=== PATIENT | female | born 1980 | race Caucasian/White ===

== ENCOUNTER → 2017-11-01 | Outpatient (CLI) | payer MEDICARE, SELFPAY ==
[~2017-11-01] MED LIST: 8 Hour C500 MG PO; ACEASPCAF; ACET325; ALBU90I INH; AMOCLA500 PO; AMOX500 PO; BUPR150T2; CALCAVITD PO; CARI350; CEPH500 PO; CITA20; DIAZ5 PO; DOXY100 PO; DULO30 PO; FERR325 PO; GABA300; GABA300 PO; HYDACE5 PO; HYDHCL25 PO; HYDPAM25 PO; IBUP200; IBUP600 PO; IBUP800 PO; KETO10 PO; METR500 PO; MULT50L; MULVITMINE PO; MUPI2TO TOP; Monodox100 MG PO; Motrin800 MG PO; NAPR500 PO; NORT10; OXYACE5T PO; PENVK500 PO; PHENY100ER PO; PROM25 PO; Prilosec20 MG PO; RANI150 PO; RXAMOX500 PO; RXHYDACE PO; RXPENVK250 PO; RXSULTRIDS PO; SERT50; SULTRIDS PO; TOPI100; TRAM50; TRAM50 PO; VARE1 PO; Vitamin D400 UNI1; Zofran4 MG PO; [UNRECOGNIZED DRUG - OTHER]; [UNRECOGNIZED DRUG - OTHER] PO
== END ==
LOC: LAB SHORT 17:09 → PLD 17:09
DX: D22.5 Melanocytic nevi of trunk (principal)
CPT/HCPCS: 88305

== ENCOUNTER 2017-12-12 12:04 | Day surgery (SDC) | payer MEDICARE, SELFPAY ==
[~2017-12-12] VITALS: Ht 149.9 cm; Wt 63.7 kg
== END 2017-12-12 13:39 | disposition home or self-care (01) ==
LOC: ORSCSDS 12:04
PROVIDERS: Internal Medicine Gastroenterology
PROC: 0DB98ZX Excision of Duodenum, Via Natural or Artificial Opening Endoscopic, Diagnostic (ICD-10-PCS; principal; 2017-12-12 13:15)
PROC: 0DB68ZX Excision of Stomach, Via Natural or Artificial Opening Endoscopic, Diagnostic (ICD-10-PCS; principal; 2017-12-12 13:15)
DX: R13.10 Dysphagia, unspecified (principal); K29.00 Acute gastritis without bleeding; Z87.11 Personal history of peptic ulcer disease; F41.8 Other specified anxiety disorders; G40.909 Epilepsy, unspecified, not intractable, without status epilepticus; F17.210 Nicotine dependence, cigarettes, uncomplicated; Z79.899 Other long term (current) drug therapy
CPT/HCPCS: 88305; 88342; J7120

== ENCOUNTER → 2019-04-26 | Outpatient (CLI) | payer MEDICARE | END | disposition home or self-care (01) | LOC: LAB SHORT 13:25 → LAB 13:25 | DX: R35.0 Frequency of micturition (principal) | CPT/HCPCS: 87086 ==

== ENCOUNTER → 2020-03-24 | Outpatient (CLI) | payer MEDICARE ==
[2020-03-24 10:11] LABS: BASOPHILS ABSOLUTE AUTO 0.05 K/mm3 (0.00-0.23); BASOPHILS PERCENT AUTO 0 % (0-2); EOSINOPHILS ABSOLUTE AUTO 0.06 K/mm3 (0.00-0.68); EOSINOPHILS PERCENT AUTO 1 % (0-6); Hematocrit 37.2 % (33.0-51.0); Hemoglobin 12.4 g/dL (11.5-16.0); IMMATURE GRAN ABSOLUTE AUTO 0.04 K/mm3 (0.00-0.10); IMMATURE GRAN PERCENT AUTO 0 % (0-1); LYMPHOCYTES ABSOLUTE AUTO 0.69 K/mm3 (0.84-5.20); LYMPHOCYTES PERCENT AUTO 5 % (21-46); MONOCYTES ABSOLUTE AUTO 0.75 K/mm3 (0.16-1.47); MONOCYTES PERCENT AUTO 6 % (4-13); Mean Corpuscular HGB 26.2 pg (26.0-34.0); Mean Corpuscular HGB Conc 33.3 g/dL (31.5-36.5); Mean Corpuscular Volume 79 fL (80-100); Mean Platelet Volume 9.4 fL (9.1-12.4); NEUTROPHILS ABSOLUTE AUTO 11.08 K/mm3 (1.96-9.15); NEUTROPHILS PERCENT AUTO 88 % (41-73); Platelet Count 289 K/mm3 (150-400); RDW Standard Deviation 46.2 fL (35.1-46.3); Red Blood Cell Count 4.74 M/mm3 (3.80-5.20); White Blood Cell Count 12.67 K/mm3 (4.00-11.30)
[2020-03-24 10:23] LABS: Albumin, Blood 3.9 g/dL (3.4-5.0); Albumin/Globulin Ratio 1.1 (0.8-1.8); Bilirubin, Total 0.5 mg/dL (0.1-1.0); Bun/Creatinine Ratio 23.1 (12.0-20.0); Calcium, Blood 8.9 mg/dL (8.5-10.1); Creatinine, Blood 1.04 mg/dL (0.40-1.00); Globulin, Blood 3.6 g/dL (2.2-4.0); Potassium, Blood 4.8 mmol/L (3.5-5.5); Total Protein, Blood 7.5 g/dL (6.4-8.2)
== END | disposition home or self-care (01) ==
LOC: LAB EV 10:07 → LAB SHORT 10:07
PROVIDERS: Physician Assistant
DX: R10.9 Unspecified abdominal pain (principal)
CPT/HCPCS: 80053; 83690; 85025

== ENCOUNTER 2021-02-18 12:17 | Day surgery (SDC) | payer MEDICARE ==
[~2021-02-18] VITALS: Ht 149.9 cm; Wt 57.3 kg
[~2021-02-18 12:17] MED LIST changes: +BUSP10 PO; +CYMBALTA60 M1 PO; +ESCI10 PO; +GABA100 PO; +MULTIPLE VITAM1 EACH PO; +NORT25 PO; +Nortriptyline H75 MG PO; +PANT40 PO; +RIZATRIPTAN10 M3 PO; +Triamcinolone A15 G4; +Vistaril25 MG PO; +[UNRECOGNIZED DRUG - OTHER] PO
[2021-02-18] MEDS ORDERED: OMEGA-3100 MG PO (12:55)
[2021-02-18] MEDS ORDERED: ESCI10 (12:55)
[2021-02-18] MEDS ORDERED: THERA-D2000 UNIT PO (12:55)
--- NOTE | 2021-02-18 13:01 | NUR ---
02/18/21 1301 Sana Kmible CHARTED BY [facility].FORMERLY [facility]
--- NOTE | 2021-02-18 14:32 | NUR ---
02/18/21 1432 Emily Santiago BUPIVACAINE 0.5% 10ML MIXED WITH EPI 1% PF 10 ML 1:1 FOR INJECTION PRIOR TO BEGINNING OF PROCEDURE BY PHYSICIAN
== END 2021-02-18 15:45 | disposition home or self-care (01) ==
LOC: ORSCSDS 12:17
PROVIDERS: Podiatrist
PROC: 0QSN04Z Reposition Right Metatarsal with Internal Fixation Device, Open Approach (ICD-10-PCS; principal; 2021-02-18 13:30)
DX: M20.11 Hallux valgus (acquired), right foot (principal); M79.671 Pain in right foot; Z87.891 Personal history of nicotine dependence; K21.9 Gastro-esophageal reflux disease without esophagitis; Z79.899 Other long term (current) drug therapy
CPT/HCPCS: C1713; J0690; J2001; J2250; J2704; J3010; J7120

== ENCOUNTER → 2022-08-09 | Outpatient (CLI) | payer MEDICARE ==
[~2022-08-09] MED LIST changes: +ESCI10; +OMEGA-3100 MG PO; +THERA-D2000 UNIT PO
[2022-08-10 15:10] LABS: HPV 16 Negative (Negative); HPV 18 Negative (Negative); HPV OTHER HR TYPES Negative (Negative)
== END | disposition home or self-care (01) ==
LOC: LAB SHORT 08:00 → LAB 08:00
PROVIDERS: Registered Nurse
DX: Z12.4 Encounter for screening for malignant neoplasm of cervix (principal)
CPT/HCPCS: 87624; G0123

== ENCOUNTER → 2023-04-21 | Outpatient (CLI) | payer BC ==
[2023-04-21 17:09] LABS: BASOPHILS ABSOLUTE AUTO 0.05 K/mm3 (0.00-0.23); BASOPHILS PERCENT AUTO 1 % (0-2); EOSINOPHILS ABSOLUTE AUTO 0.12 K/mm3 (0.00-0.68); EOSINOPHILS PERCENT AUTO 3 % (0-6); Hematocrit 35.7 % (33.0-51.0); Hemoglobin 12.1 g/dL (11.5-16.0); IMMATURE GRAN ABSOLUTE AUTO 0.01 K/mm3 (0.00-0.10); IMMATURE GRAN PERCENT AUTO 0 % (0-1); LYMPHOCYTES ABSOLUTE AUTO 1.63 K/mm3 (0.84-5.20); LYMPHOCYTES PERCENT AUTO 40 % (21-46); MONOCYTES ABSOLUTE AUTO 0.34 K/mm3 (0.16-1.47); MONOCYTES PERCENT AUTO 8 % (4-13); Mean Corpuscular HGB 28.3 pg (26.0-34.0); Mean Corpuscular HGB Conc 33.9 g/dL (31.5-36.5); Mean Corpuscular Volume 84 fL (80-100); NEUTROPHILS ABSOLUTE AUTO 1.96 K/mm3 (1.96-9.15); NEUTROPHILS PERCENT AUTO 48 % (41-73); Platelet Count 287 K/mm3 (150-400); RDW Coefficient Variation 14.3 % (11.7-14.2); RDW Standard Deviation 43.8 fL (35.1-46.3); Red Blood Cell Count 4.27 M/mm3 (3.80-5.20); White Blood Cell Count 4.11 K/mm3 (4.00-11.30)
[2023-04-21 21:51] LABS: Albumin, Blood 4.1 g/dL (3.4-5.0); Albumin/Globulin Ratio 1.3 (0.8-1.8); Bilirubin, Total 0.4 mg/dL (0.1-1.0); Bun/Creatinine Ratio 17.5 (12.0-20.0); Calcium, Blood 9.4 mg/dL (8.5-10.1); Creatinine, Blood 1.03 mg/dL (0.40-1.00); Globulin, Blood 3.1 g/dL (2.2-4.0); Potassium, Blood 4.4 mmol/L (3.5-5.5); Thyroid Stimulating Hormone 1.02 uIU/mL (0.360-4.800); Total Protein, Blood 7.2 g/dL (6.4-8.2)
[2023-04-24 00:08] LABS: HEMOGLOBIN A1C 5.8 % (4.8-5.6)
== END | disposition home or self-care (01) ==
LOC: LAB SHORT 15:01 → LAB 15:01
PROVIDERS: Registered Nurse
DX: R53.83 Other fatigue (principal); R73.03 Prediabetes
CPT/HCPCS: 36415; 80053; 83036; 84443; 85025

== ENCOUNTER 2023-04-26 13:29 | Day surgery (SDC) | payer BC ==
[~2023-04-26] VITALS: Ht 149.9 cm; Wt 57.0 kg
[2023-04-26 16:18] VITALS: BP 109/80
== END 2023-04-26 15:50 | disposition home or self-care (01) ==
LOC: ORSCSDS 13:29
PROVIDERS: Internal Medicine Gastroenterology
PROC: 0DB98ZX Excision of Duodenum, Via Natural or Artificial Opening Endoscopic, Diagnostic (ICD-10-PCS; principal; 2023-04-26 14:45)
PROC: 0DB68ZX Excision of Stomach, Via Natural or Artificial Opening Endoscopic, Diagnostic (ICD-10-PCS; principal; 2023-04-26 14:45)
DX: K21.9 Gastro-esophageal reflux disease without esophagitis (principal); K31.A0 Gastric intestinal metaplasia, unspecified; F41.9 Anxiety disorder, unspecified; F32.A Depression, unspecified; G40.909 Epilepsy, unspecified, not intractable, without status epilepticus; Z79.899 Other long term (current) drug therapy; Z87.891 Personal history of nicotine dependence
CPT/HCPCS: 88305; 88342; J2704; J7120

== ENCOUNTER → 2023-12-12 | Outpatient (CLI) | payer BC ==
[2023-12-12 17:01] LABS: Bacterial Vaginosis PCR Negative (NEGATIVE); Candida Group, PCR NOT DETECTED (NOT DETECT); Candida glabrata-krusei, PCR NOT DETECTED (NOT DETECT)
== END | disposition home or self-care (01) ==
LOC: LAB SHORT 14:16
PROVIDERS: Advanced Practice Midwife
DX: N76.0 Acute vaginitis (principal)
CPT/HCPCS: 87481; 87661; 87801

== ENCOUNTER 2024-02-07 19:57 | Emergency (ER) | payer BC ==
[~2024-02-07] VITALS: Ht 157.5 cm; Wt 59.4 kg
[~2024-02-07 19:57] MED LIST changes: +ATOM25 PO; +CLIMARA1 EACH TOP; +Cymbalta20 MG PO; +DOTTI1 EAC6; +DULO60 PO; +ESTRADIOL1 EAC2; +PROG100 PO
[2024-02-07 20:36] LABS: Source, Urine Clean Catch
[2024-02-07 20:38] LABS: Appearance, Urine Clear (Clear); Bilirubin, Urine Neg (Neg); Blood, Urine Neg (Neg); Glucose Qualitative, Urine Neg (Neg); Ketones, Urine Neg (Neg); Leukocyte Esterase, Urine Neg (Neg); Nitrite, Urine Neg (Neg); Protein, Urine Neg (Neg); Urobilinogen, Urine NORM (Normal)
[2024-02-07 20:39] LABS: Color, Urine Pale Yellow (P-Yellow)
[2024-02-07 20:54] LABS: BASOPHILS ABSOLUTE AUTO 0.04 K/mm3 (0.00-0.23); BASOPHILS PERCENT AUTO 1 % (0-2); EOSINOPHILS ABSOLUTE AUTO 0.09 K/mm3 (0.00-0.68); EOSINOPHILS PERCENT AUTO 1 % (0-6); Hematocrit 37.2 % (33.0-51.0); Hemoglobin 11.8 g/dL (11.5-16.0); IMMATURE GRAN ABSOLUTE AUTO 0.02 K/mm3 (0.00-0.10); IMMATURE GRAN PERCENT AUTO 0 % (0-1); LYMPHOCYTES ABSOLUTE AUTO 1.85 K/mm3 (0.84-5.20); LYMPHOCYTES PERCENT AUTO 25 % (21-46); MONOCYTES ABSOLUTE AUTO 0.47 K/mm3 (0.16-1.47); MONOCYTES PERCENT AUTO 6 % (4-13); Mean Corpuscular HGB 25.1 pg (26.0-34.0); Mean Corpuscular HGB Conc 31.7 g/dL (31.5-36.5); Mean Corpuscular Volume 79 fL (80-100); Mean Platelet Volume 9.5 fL (9.1-12.4); NEUTROPHILS ABSOLUTE AUTO 4.94 K/mm3 (1.96-9.15); NEUTROPHILS PERCENT AUTO 67 % (41-73); Platelet Count 349 K/mm3 (150-400); RDW Coefficient Variation 19.5 % (11.7-14.2); RDW Standard Deviation 55.1 fL (35.1-46.3); Red Blood Cell Count 4.71 M/mm3 (3.80-5.20); White Blood Cell Count 7.41 K/mm3 (4.00-11.30)
[2024-02-07 21:29] LABS: Albumin/Globulin Ratio 1.1 (0.8-1.8); Bilirubin, Total 0.2 mg/dL (0.1-1.0); Bun/Creatinine Ratio 18.8 (12.0-20.0); Calcium, Blood 9.6 mg/dL (8.5-10.1); Creatinine, Blood 0.9 mg/dL (0.40-1.00); Globulin, Blood 3.8 g/dL (2.2-4.0); Potassium, Blood 4.2 mmol/L (3.5-5.5); Total Protein, Blood 7.8 g/dL (6.4-8.2)
[2024-02-07] MEDS ORDERED: CREON DR 36,001 EACH PO (23:31)
[2024-02-07] MEDS ORDERED: PROGESTERONE5000 GM MC (23:33)
[2024-02-07] MEDS ORDERED: Cyclobenzaprine HCl 10 MG Tab PO ONE (23:35)
[2024-02-07] MEDS ORDERED: Ondansetron HCl 2 MG / ML 2ML Vial IV ONE (23:50)
[2024-02-08] MEDS ORDERED: DOC250 PO (00:06)
[2024-02-08] MEDS ORDERED: CYCL10 PO (00:06)
[2024-02-08 00:15] VITALS: BP 146/93
[2024-02-08] MEDS ORDERED: Promethazine HCl 25 MG Tab PO ONE (00:15)
== END 2024-02-08 00:35 | disposition home or self-care (01) ==
LOC: ER 19:57
PROVIDERS: Nurse Practitioner
DX: K59.00 Constipation, unspecified (principal); Z88.8 Allergy status to other drugs, medicaments and biological substances; Z88.5 Allergy status to narcotic agent; Z79.899 Other long term (current) drug therapy; G43.909 Migraine, unspecified, not intractable, without status migrainosus
CPT/HCPCS: 74176; 80053; 81003; 81025; 85025; 99284-25; A9270; J2405

== ENCOUNTER 2024-04-07 02:45 | Emergency (ER) | payer BC ==
[~2024-04-07] VITALS: Ht 149.9 cm; Wt 59.0 kg
[~2024-04-07 02:45] MED LIST changes: +CREON DR 36,001 EACH PO; +CYCL10 PO; +DOC250 PO; +PROGESTERONE5000 GM MC
[2024-04-07] MEDS ORDERED: Droperidol 5 mg/2 ml Vial IV ONE (04:35)
[2024-04-07 04:36] LABS: BASOPHILS ABSOLUTE AUTO 0.04 K/mm3 (0.00-0.23); BASOPHILS PERCENT AUTO 0 % (0-2); EOSINOPHILS ABSOLUTE AUTO 0.05 K/mm3 (0.00-0.68); EOSINOPHILS PERCENT AUTO 0 % (0-6); Hematocrit 44.5 % (33.0-51.0); Hemoglobin 15.1 g/dL (11.5-16.0); IMMATURE GRAN ABSOLUTE AUTO 0.07 K/mm3 (0.00-0.10); IMMATURE GRAN PERCENT AUTO 1 % (0-1); LYMPHOCYTES ABSOLUTE AUTO 0.82 K/mm3 (0.84-5.20); LYMPHOCYTES PERCENT AUTO 5 % (21-46); MONOCYTES ABSOLUTE AUTO 0.74 K/mm3 (0.16-1.47); MONOCYTES PERCENT AUTO 5 % (4-13); Mean Corpuscular HGB 28.4 pg (26.0-34.0); Mean Corpuscular HGB Conc 33.9 g/dL (31.5-36.5); Mean Corpuscular Volume 84 fL (80-100); Mean Platelet Volume 9.8 fL (9.1-12.4); NEUTROPHILS ABSOLUTE AUTO 13.64 K/mm3 (1.96-9.15); NEUTROPHILS PERCENT AUTO 89 % (41-73); Platelet Count 307 K/mm3 (150-400); RDW Coefficient Variation 18.6 % (11.7-14.2); RDW Standard Deviation 56.4 fL (35.1-46.3); Red Blood Cell Count 5.31 M/mm3 (3.80-5.20); White Blood Cell Count 15.36 K/mm3 (4.00-11.30)
[2024-04-07 04:47] LABS: Albumin, Blood 4.1 g/dL (3.4-5.0); Albumin/Globulin Ratio 1.1 (0.8-1.8); Bilirubin, Total 0.3 mg/dL (0.1-1.0); Bun/Creatinine Ratio 28.8 (12.0-20.0); Calcium, Blood 9.4 mg/dL (8.5-10.1); Creatinine, Blood 0.9 mg/dL (0.40-1.00); Globulin, Blood 3.8 g/dL (2.2-4.0); Magnesium, Blood 2.2 mg/dL (1.6-2.4); Potassium, Blood 3.6 mmol/L (3.5-5.5); Total Protein, Blood 7.9 g/dL (6.4-8.2)
[2024-04-07] MEDS ORDERED: ONDA4ODT MM (06:25)
[2024-04-07 08:04] VITALS: BP 106/75
== END 2024-04-07 08:04 | disposition home or self-care (01) ==
LOC: ER 02:45
PROVIDERS: Emergency Medicine
DX: R10.9 Unspecified abdominal pain (principal); R11.2 Nausea with vomiting, unspecified; Z88.8 Allergy status to other drugs, medicaments and biological substances; Z88.5 Allergy status to narcotic agent; Z79.899 Other long term (current) drug therapy; G43.909 Migraine, unspecified, not intractable, without status migrainosus
CPT/HCPCS: 80053; 83605; 83690; 83735; 84145; 85025; 96374; 99284-25; J1790

== ENCOUNTER 2025-01-12 15:41 | Emergency (ER) | payer BC ==
[~2025-01-12] VITALS: Ht 149.9 cm; Wt 56.7 kg
[~2025-01-12 15:41] MED LIST changes: +ONDA4ODT MM
[2025-01-12 16:11] LABS: BASOPHILS ABSOLUTE AUTO 0.04 K/mm3 (0.00-0.23); BASOPHILS PERCENT AUTO 1 % (0-2); EOSINOPHILS ABSOLUTE AUTO 0.09 K/mm3 (0.00-0.68); EOSINOPHILS PERCENT AUTO 2 % (0-6); Hemoglobin 13.1 g/dL (11.5-16.0); IMMATURE GRAN ABSOLUTE AUTO 0.01 K/mm3 (0.00-0.10); IMMATURE GRAN PERCENT AUTO 0 % (0-1); LYMPHOCYTES ABSOLUTE AUTO 1.82 K/mm3 (0.84-5.20); LYMPHOCYTES PERCENT AUTO 35 % (21-46); MONOCYTES ABSOLUTE AUTO 0.38 K/mm3 (0.16-1.47); MONOCYTES PERCENT AUTO 7 % (4-13); Mean Corpuscular HGB 30.3 pg (26.0-34.0); Mean Corpuscular HGB Conc 34.5 g/dL (31.5-36.5); Mean Corpuscular Volume 88 fL (80-100); Mean Platelet Volume 9.5 fL (9.1-12.4); NEUTROPHILS ABSOLUTE AUTO 2.89 K/mm3 (1.96-9.15); NEUTROPHILS PERCENT AUTO 55 % (41-73); Platelet Count 276 K/mm3 (150-400); RDW Standard Deviation 38.9 fL (35.1-46.3); Red Blood Cell Count 4.33 M/mm3 (3.80-5.20); White Blood Cell Count 5.23 K/mm3 (4.00-11.30)
[2025-01-12 16:24] LABS: Albumin/Globulin Ratio 1.3 (0.8-1.8); Bilirubin, Total 0.6 mg/dL (0.1-1.0); Calcium, Blood 8.9 mg/dL (8.5-10.1); Creatinine, Blood 0.93 mg/dL (0.40-1.00)
[2025-01-12 19:00] VITALS: BP 127/96
== END 2025-01-12 19:07 | disposition home or self-care (01) ==
LOC: ER 15:41
PROVIDERS: Emergency Medicine
DX: R07.89 Other chest pain (principal); I10 Essential (primary) hypertension; G43.909 Migraine, unspecified, not intractable, without status migrainosus; Z88.8 Allergy status to other drugs, medicaments and biological substances; Z88.6 Allergy status to analgesic agent; Z88.5 Allergy status to narcotic agent; Z79.899 Other long term (current) drug therapy
CPT/HCPCS: 71046; 80053; 84484; 85025; 93005; 93010; 99285-25

== ENCOUNTER 2025-02-13 10:00 | Day surgery (SDC) | payer BC ==
[2025-02-13] VITALS (13 sets, daily range): BP systolic 84–135; BP diastolic 53–91
[~2025-02-13] VITALS: Ht 149.9 cm; Wt 56.9 kg
[~2025-02-13 10:00] MED LIST changes: +ABILIFY MYCITE5 M2 PO; +AMIT25 PO; +CeFAZolin Sodium 2,000 MG in NS 100 ML IV SCH; +DHEA50 M2 PO; +LINZESS290 MCG PO; +Lactated Ringer's 1,000 ML IV SCH; +Vyvanse20 MG PO
--- NOTE | 2025-02-13 10:50 | NUR ---
History, Chart, Medications and Allergies reviewed before start of procedure. Pre-Op teaching done. Pt verbalizes understanding. Patient States Post-Procedure ride home has been arranged. Pt belongings to OR with pt.
[2025-02-13] MEDS ORDERED: Bupivacaine 0.25% Epi 1:200000 30 ML Vial ONE (10:53)
[2025-02-13] MEDS ORDERED: propofoL 20 ML IV ONE (10:57)
[2025-02-13] MEDS ORDERED: Midazolam HCl 1MG / ML 2ML Vial ONE (10:57)
[2025-02-13] MEDS ORDERED: FentaNYL Citrate 50 MCG/ML 2 ML Injection ONE (10:57)
[2025-02-13] MEDS ORDERED: Lidocaine HCl 2% 20 ML MDV ONE (10:58)
[2025-02-13] MEDS ORDERED: Rocuronium Bromide 10 MG/ML 5ML Injection IV ONE (10:58)
[2025-02-13] MEDS ORDERED: HYDROmorphone HCl/Pf 1MG SYR ONE ×2 (11:27→13:17)
[2025-02-13] MEDS ORDERED: Phenylephrine HCl 100 MCG/ML-NS 10MLSYR (1MG/10ML) ONE (11:46)
[2025-02-13] MEDS ORDERED: HYDROmorphone HCl/Pf 1MG SYR IV PRN ×2 (12:10→12:15)
[2025-02-13] MEDS ORDERED: Albuterol 2.5 MG/3 ML VIAL INH PRN (12:10)
[2025-02-13] MEDS ORDERED: FentaNYL Citrate 50 MCG/ML 2 ML Injection IV PRN ×3 (12:10→12:45)
[2025-02-13] MEDS ORDERED: Ondansetron HCl 2 MG / ML 2ML Vial IV PRN ×2 (12:10→12:45)
[2025-02-13] MEDS ORDERED: Ondansetron HCl 2 MG / ML 2ML Vial ONE (12:24)
[2025-02-13] MEDS ORDERED: Ketorolac Tromethamine 30mg Vial ONE (12:24)
[2025-02-13] MEDS ORDERED: Sugammadex Sodium 200 MG/2ML SDV (100 MG/ML) ONE (12:26)
[2025-02-13] MEDS ORDERED: OxyCODONE HCL 5 MG TAB PO PRN (12:40)
[2025-02-13] MEDS ORDERED: DiphenhydrAMINE HCL 25 MG Cap PO PRN (12:40)
[2025-02-13] MEDS ORDERED: Lactated Ringer's 1,000 ML IV SCH (12:40)
[2025-02-13] MEDS ORDERED: HYDROcodone 5-APAP 325 TAB PO PRN (12:45)
[2025-02-13] MEDS ORDERED: Ibuprofen 400 MG Tab PO PRN (12:45)
[2025-02-13] MEDS ORDERED: Simethicone 80 MG Chew PO PRN (12:45)
[2025-02-13] MEDS ORDERED: Acetaminophen 325 MG TABLET PO PRN (12:45)
[2025-02-13] MEDS ORDERED: HYDR1TAB94 PO (14:53)
[2025-02-13 15:39] LABS: BASOPHILS ABSOLUTE AUTO 0.03 K/mm3 (0.00-0.23); BASOPHILS PERCENT AUTO 0 % (0-2); EOSINOPHILS ABSOLUTE AUTO 0.01 K/mm3 (0.00-0.68); EOSINOPHILS PERCENT AUTO 0 % (0-6); Hematocrit 33.6 % (33.0-51.0); Hemoglobin 11.4 g/dL (11.5-16.0); IMMATURE GRAN ABSOLUTE AUTO 0.03 K/mm3 (0.00-0.10); IMMATURE GRAN PERCENT AUTO 0 % (0-1); LYMPHOCYTES ABSOLUTE AUTO 0.82 K/mm3 (0.84-5.20); LYMPHOCYTES PERCENT AUTO 7 % (21-46); MONOCYTES ABSOLUTE AUTO 0.48 K/mm3 (0.16-1.47); MONOCYTES PERCENT AUTO 4 % (4-13); Mean Corpuscular HGB 30.9 pg (26.0-34.0); Mean Corpuscular HGB Conc 33.9 g/dL (31.5-36.5); Mean Corpuscular Volume 91 fL (80-100); Mean Platelet Volume 9.3 fL (9.1-12.4); NEUTROPHILS ABSOLUTE AUTO 10.79 K/mm3 (1.96-9.15); NEUTROPHILS PERCENT AUTO 89 % (41-73); Platelet Count 245 K/mm3 (150-400); RDW Coefficient Variation 13.1 % (11.7-14.2); RDW Standard Deviation 43.2 fL (35.1-46.3); Red Blood Cell Count 3.69 M/mm3 (3.80-5.20); White Blood Cell Count 12.16 K/mm3 (4.00-11.30)
--- NOTE | 2025-02-13 16:30 | NUR ---
DISCHARGE SUMMARY: PATIENT VOIDING WITHOUT DIFFICULTY, TOLERATING PO INTAKE WITHOUT N/V AND HAS HER PAIN CONTROLLED WITH PO MEDICATIONS. VITALS STABLE WITH SBP >100 AND MAPS >65. PATIENT DOES REPORT SOME CRAMPING, BUT ABLE TO WALK TO THE BATHROOM WITH STAND BY ASSISTANCE. MINIMAL SEROUS OUTPUT IN PERIPAD. PER DR. PEREIRA, PATIENT READY FOR DISCHARGE. DISCHARGE INSTRUCTIONS AND EDUCATION PROVIDED BY [facility] SCARLETT MORA. PATIENT DENIED ANY FURTHER QUESTIONS OR CONCERNS. SCRIPT FOR HYDROCODONE AND MOTRIN PROVIDED TO THE PATIENT. PATIENT STABLE AT TIME OF DISCHARGE.
[2025-02-13] MEDS ORDERED: Ketorolac Tromethamine 30mg Vial IV SCH (18:00)
== END 2025-02-13 16:35 | disposition home or self-care (01) ==
LOC: ORSCMMR 10:00 → ORD 11:45 → SURS 13:47 → ORSCMMR 13:47 → SURS 16:35 → ORSCMMR 16:35 → ORD 03-20 07:30
PROVIDERS: Obstetrics & Gynecology
PROC: 0UT9FZZ Resection of Uterus, Via Natural or Artificial Opening With Percutaneous Endoscopic Assistance (ICD-10-PCS; principal; 2025-02-13 11:45)
PROC: 0UT7FZZ Resection of Bilateral Fallopian Tubes, Via Natural or Artificial Opening With Percutaneous Endoscopic Assistance (ICD-10-PCS; principal; 2025-02-13 11:45)
DX: N93.8 Other specified abnormal uterine and vaginal bleeding (principal); D63.8 Anemia in other chronic diseases classified elsewhere; K21.9 Gastro-esophageal reflux disease without esophagitis; Z79.899 Other long term (current) drug therapy
CPT/HCPCS: 36415; 85025; 88305; 88307; A9270; J0690; J1171; J1885; J2250; J2371; J2405; J2704; J3010; J7120

== ENCOUNTER 2025-04-10 02:12 | Emergency (ER) | payer BC ==
[~2025-04-10] VITALS: Ht 149.9 cm; Wt 59.0 kg
[~2025-04-10 02:12] MED LIST changes: -CeFAZolin Sodium 2,000 MG in NS 100 ML IV SCH; +HYDR1TAB94 PO; -Lactated Ringer's 1,000 ML IV SCH; +MOBIC15 MG PO; +NURTEC ODT75 MG PO
[2025-04-10] MEDS ORDERED: Ketorolac Tromethamine 30mg Vial IV ONE ×2 (03:30→13:10)
[2025-04-10] MEDS ORDERED: NS 1,000 ML IV SCH (03:35)
[2025-04-10 03:42] LABS: Source, Urine Clean Catch
[2025-04-10 04:08] LABS: Bilirubin, Urine Neg (Neg); Blood, Urine Neg (Neg); Glucose Qualitative, Urine Neg (Neg); Ketones, Urine Neg (Neg); Leukocyte Esterase, Urine 1+ (Neg); Nitrite, Urine Neg (Neg); Protein, Urine Neg (Neg); Urobilinogen, Urine NORM (Normal)
[2025-04-10 04:16] LABS: BASOPHILS ABSOLUTE AUTO 0.03 K/mm3 (0.00-0.23); BASOPHILS PERCENT AUTO 0 % (0-2); EOSINOPHILS ABSOLUTE AUTO 0.05 K/mm3 (0.00-0.68); EOSINOPHILS PERCENT AUTO 1 % (0-6); Hematocrit 36.6 % (33.0-51.0); Hemoglobin 12.6 g/dL (11.5-16.0); IMMATURE GRAN ABSOLUTE AUTO 0.04 K/mm3 (0.00-0.10); IMMATURE GRAN PERCENT AUTO 0 % (0-1); LYMPHOCYTES ABSOLUTE AUTO 0.69 K/mm3 (0.84-5.20); LYMPHOCYTES PERCENT AUTO 6 % (21-46); MONOCYTES ABSOLUTE AUTO 0.75 K/mm3 (0.16-1.47); MONOCYTES PERCENT AUTO 7 % (4-13); Mean Corpuscular HGB 30.7 pg (26.0-34.0); Mean Corpuscular HGB Conc 34.4 g/dL (31.5-36.5); Mean Corpuscular Volume 89 fL (80-100); Mean Platelet Volume 9.3 fL (9.1-12.4); NEUTROPHILS ABSOLUTE AUTO 9.18 K/mm3 (1.96-9.15); NEUTROPHILS PERCENT AUTO 85 % (41-73); Platelet Count 254 K/mm3 (150-400); RDW Coefficient Variation 12.4 % (11.7-14.2); RDW Standard Deviation 40.9 fL (35.1-46.3); White Blood Cell Count 10.74 K/mm3 (4.00-11.30)
[2025-04-10 04:28] LABS: Appearance, Urine Clear (Clear); Color, Urine Pale Yellow (P-Yellow)
[2025-04-10 04:29] LABS: Bacteria Few /hpf; Red Blood Cells, Urine 0-2 /hpf (0-2); Squamous Epithelial Cells Few /hpf (Few)
[2025-04-10 04:51] LABS: Albumin, Blood 3.5 g/dL (3.4-5.0); Albumin/Globulin Ratio 1.1 (0.8-1.8); Bilirubin, Total 0.3 mg/dL (0.1-1.0); Bun/Creatinine Ratio 16.3 (12.0-20.0); Calcium, Blood 8.7 mg/dL (8.5-10.1); Creatinine, Blood 0.92 mg/dL (0.40-1.00); Globulin, Blood 3.1 g/dL (2.2-4.0); Potassium, Blood 4.2 mmol/L (3.5-5.5); Total Protein, Blood 6.6 g/dL (6.4-8.2)
[2025-04-10] MEDS ORDERED: FentaNYL Citrate 50 MCG/ML 2 ML Injection IV PRN (07:30)
[2025-04-10] MEDS ORDERED: Gabapentin 300 MG Cap PO ONE (13:10)
[2025-04-10] MEDS ORDERED: Methyl Salicylate/Menth/Camph 57 GM TUBE TOP ONE (13:10)
[2025-04-10] MEDS ORDERED: Morphine Sulfate 4 MG/1 ML Injection IV ONE (13:15)
[2025-04-10] MEDS ORDERED: GABA300T24 PO (14:52)
[2025-04-10] MEDS ORDERED: IBUP600 PO (14:57)
[2025-04-10 15:03] VITALS: BP 125/79
== END 2025-04-10 15:04 | disposition home or self-care (01) ==
LOC: ER 02:12
PROVIDERS: Emergency Medicine
DX: M54.50 Low back pain, unspecified (principal); G89.29 Other chronic pain; R32 Unspecified urinary incontinence; Z88.8 Allergy status to other drugs, medicaments and biological substances; Z79.2 Long term (current) use of antibiotics; Z79.899 Other long term (current) drug therapy; Z87.891 Personal history of nicotine dependence; Z59.89 Other problems related to housing and economic circumstances
CPT/HCPCS: 72148; 80053; 81001; 81025; 85025; 87077; 87086; 87186; 96361; 96374; 96375; 96376; 99284-25; A9270; J1885; J2270; J3010; J7030